=== PATIENT | female | born 1990 | race Caucasian/White ===

== ENCOUNTER → 2018-04-20 13:35 | Outpatient (REF) | payer MEDICAID, SELFPAY ==
[2018-04-21 14:34] LABS: Chlamydia Result Negative; GC Result Negative; Specimen Description CERVIX
== END ==
LOC: LBN 13:35
PROVIDERS: Visit Provider Obstetrics & Gynecology
DX: Z11.3 Encounter for screening for infections with a predominantly sexual mode of transmission (principal)
CPT/HCPCS: 87491; 87591

== ENCOUNTER 2018-07-08 15:12 | Outpatient (REF) | payer SELFPAY ==
[2018-07-11 15:15] LABS: Chlamydia Result Negative; GC Result Negative; Specimen Description CERVIX
== END 2018-07-08 15:32 ==
LOC: LBN 15:12
PROVIDERS: Visit Provider Nurse Practitioner Women's Health
DX: Z11.3 Encounter for screening for infections with a predominantly sexual mode of transmission (principal)
CPT/HCPCS: 87491; 87591

== ENCOUNTER 2021-09-23 03:01 | Outpatient (CLI) | payer MEDICAID, SELFPAY ==
[2021-09-23 14:49] LABS: Kit/Specimen SENT
[2021-09-23 15:13] LABS: Abs Immature Grans 0.02 10^3/uL (0.0-0.06); Absolute Basophil Count 0.04 10^3/uL (0.0-0.2); Absolute Eosinophil Count 0.06 10^3/uL (0.0-0.7); Absolute Lymphocyte Count 1.48 10^3/uL (1.2-3.4); Absolute Monocyte Count 0.45 10^3/uL (0.1-0.8); Absolute Neutrophil Count 5.42 10^3/uL (1.2-6.7); Basophils % 0.5; Eosinophils % 0.8; HCT 35.4 % (36.0-46.0); HGB 12.3 g/dL (11.2-15.7); Immature Grans % 0.3; Lymphocytes % 19.8; MCH 31.1 pg (27.0-33.0); MCHC 34.7 % (32.0-36.0); MCV 89.4 fL (80-95); MPV 11.7 fL (8.0-11.0); Neutrophils % 72.6; Nucleated RBC 0 %; Platelet Count 213 10^3/uL (130-400); RBC 3.96 10^6/uL (3.93-5.22); RDW 12.1 % (11.7-14.6); RDW-SD 40.2 fL; WBC 7.47 10^3/uL (4.4-10.8)
[2021-09-23 16:00] LABS: *AMPHETAMINES SCREEN URINE Negative (Negative); *BARBITURATES SCREEN URINE Negative (Negative); *BENZODIAZEPINES SCREEN URINE Negative (Negative); Cannabinoids THC Negative (Negative); Cocaine Screen,Urine Negative (Negative); METHADONE URINE SCREEN Negative (Negative); OPIATES URINE SCREEN Negative (Negative); Tricyclic Antidepressants Negative (Negative)
[2021-09-23 17:48] LABS: TSH (W/Ref FT4) 3.28 uIU/mL (0.36-3.74)
[2021-09-24 10:29] LABS: Hepatitis B Surface Ag Negative (Negative)
[2021-09-24 11:03] LABS: Varicella IgG Antibody Positive (See Note)
[2021-09-24 11:06] LABS: Rubella IgG Ab (UVM) Negative (See Note)
[2021-09-24 11:31] LABS: Hepatitis C Ab w Rflx HCV PCR Negative (Negative)
[2021-09-24 13:23] LABS: HIV-1/2 Ag & Ab Screen Negative (Negative)
[2021-09-24 15:48] LABS: Chlamydia Result Negative (Negative); GC Result Negative (Negative)
[2021-09-25 11:19] LABS: Syphilis Total Ab w/Reflex Nonreactive (Nonreactive)
[2021-09-28 00:51] LABS: Result Summary NEGATIVE; Specimen WB Whole Blood
[2021-10-01 12:09] LABS: Buprenorphine Negative ng/mL (Cutoff: 5.0); Norbuprenorphine Negative ng/mL (Cutoff: 2.5)
== END 2021-09-23 03:02 | disposition home or self-care (01) ==
LOC: LBO 03:01
PROVIDERS: Visit Provider Advanced Practice Midwife
DX: Z34.01 Encounter for supervision of normal first pregnancy, first trimester (principal); N89.8 Other specified noninflammatory disorders of vagina
CPT/HCPCS: 36415; 80307; 86787; 86803; 86850; 86900; 86901; 87340; 87389; 87491; 87591; 81220; 84443; 85025; 86762; 86780; 87086; 87480; 87510; 87660

== ENCOUNTER 2021-09-23 15:51 | Outpatient (REF) | payer MEDICAID, SELFPAY ==
--- NOTE | 2021-09-23 13:40 | PAPFT_PTH ---
PATIENT: Dorothy Wakefield LOC: [facility] U#:[id number] AGE/SX: 31/F ROOM: RE09/23/[address]: Autumn Bedolla CNM : 1990 BED: DIS: 09/23/2021 SPEC #: [id number] RECD: 09/23/21 18:14 STATUS: GLORY REQ #: [id number] PERLA: 09/23/21 13:[address]: Autumn Bedolla DEPT: [facility] Cytology RECD BY: Gwen Martinez ENTERED: 09/23/21 18:15 SP TYPE: PAPFT OTHR DR: None Tissues: 1 - CX/ENDOCX FOR PAP SMEARS Procedures: PAP THIN PREP/UVM Screening HPV DNA PROBE Comments: [id number]
== END 2021-09-23 15:52 | disposition home or self-care (01) ==
LOC: LBN 15:51
PROVIDERS: Visit Provider Advanced Practice Midwife
DX: Z12.4 Encounter for screening for malignant neoplasm of cervix (principal); Z11.51 Encounter for screening for human papillomavirus (HPV)
CPT/HCPCS: 88142; 87624

== ENCOUNTER 2021-10-28 02:09 | Outpatient (CLI) | payer MEDICAID, SELFPAY ==
[2021-10-28 12:25] LABS: T4 14.5 ug/mL (4.7-13.3)
[2021-10-28 13:31] LABS: FREE T4 0.98 ng/dL (0.76-1.46); TSH 1.47 uIU/mL (0.36-3.74)
[2021-10-29 10:15] LABS: Thyroperoxidase Antibody 30 U/mL (<=60)
== END 2021-10-28 02:10 | disposition home or self-care (01) ==
LOC: LBO 02:09
PROVIDERS: Advanced Practice Midwife; Visit Provider Advanced Practice Midwife
DX: R79.89 Other specified abnormal findings of blood chemistry (principal)
CPT/HCPCS: 36415; 86376; 84436; 84439; 84443

== ENCOUNTER 2021-12-05 00:06 | Outpatient (CLI) | payer MEDICAID, SELFPAY ==
--- NOTE | 2021-12-05 06:30 | DI.US_ITS ---
Exam(s) US OB 2-3 TRIMESTER EXAM: US OB 2-3 TRIMESTER CLINICAL HISTORY: ,Z34.90 TECHNIQUE: Ultrasound performed using standard protocol. COMPARISON: No exams were available for comparison FINDINGS: Ob ultrasound was performed utilizing 2nd trimester protocol. biometry is consistent with gest ational age of 20 weeks 6 days and EDC of April 18. Placenta is anterior with no placenta previa. There is a normal quantity of amniotic fluid. anomaly screen is within normal limits as per the attached checklist. heart rate was 160 BPM IMPRESSION: DATA REPOSITORY:
== END 2021-12-05 00:26 ==
PROVIDERS: Visit Provider Advanced Practice Midwife
DX: Z34.92 Encounter for supervision of normal pregnancy, unspecified, second trimester (principal); Z3A.20 20 weeks gestation of pregnancy
CPT/HCPCS: 36415; 76805; 82105

== ENCOUNTER 2021-12-05 01:32 | Outpatient (CLI) | payer MEDICAID, SELFPAY ==
[2021-12-08 14:51] LABS: AFP 73.5 ng/mL; Calculated age at EDD 32 years; Cigarette smoking status non-Smoker; GA used in risk estimate Dates estimate; IVF Pregnancy No; Initial or repeat testing Initial testing; Insulin dependent diabetes No; Maternal Weight 134 lbs; Number of Fetuses 1; Physician Phone Number 802-748-7300; Prev Pregnancy w/NTD No; RECOMMENDED FOLLOW UP None.; Results Summary Normal risk
== END 2021-12-05 01:33 | disposition home or self-care (01) ==
LOC: LBO 01:32
PROVIDERS: Advanced Practice Midwife; Visit Provider Advanced Practice Midwife
DX: Z34.92 Encounter for supervision of normal pregnancy, unspecified, second trimester (principal)
CPT/HCPCS: 36415; 82105

== ENCOUNTER 2022-01-27 01:51 | Outpatient (CLI) | payer MEDICAID, SELFPAY ==
[2022-01-27 11:09] LABS: HCT 31.8 % (36.0-46.0); HGB 10.7 g/dL (11.2-15.7); MCH 31.3 pg (27.0-33.0); MCHC 33.6 % (32.0-36.0); MCV 93 fL (80-95); MPV 10.4 fL (8.0-11.0); Platelet Count 162 10^3/uL (130-400); RBC 3.42 10^6/uL (3.93-5.22); RDW 13.2 % (11.7-14.6); RDW-SD 45.1 fL; WBC 8.32 10^3/uL (4.4-10.8)
[2022-01-27 11:18] LABS: Glucose,1 Hr (Glucola) 161 mg/dL (80-140)
== END 2022-01-27 01:52 | disposition home or self-care (01) ==
LOC: LBO 01:51
PROVIDERS: Advanced Practice Midwife; Visit Provider Advanced Practice Midwife
DX: Z3A.28 28 weeks gestation of pregnancy; O36.012 Maternal care for anti-D [Rh] antibodies, second trimester; Z67.91 Unspecified blood type, Rh negative
CPT/HCPCS: 36415; 82950; 85027; 86850; 90384

== ENCOUNTER 2022-02-12 03:10 | Outpatient (CLI) | payer MEDICAID, SELFPAY ==
[2022-02-12 09:00] LABS: Glucose 1 Hour 192 mg/dL
[2022-02-12 11:14] LABS: Glucose 3 Hour 162 mg/dL
--- NOTE | 2022-03-02 15:08 | DIABASSESS_ITS ---
Date of service: 03/02/22 Time of Service: 15:08 Diabetes Note Reason for Visit: gdm NOTE: Met with Dorothy in [facility]. Reviewed blood sugar goals and ideal meal plans with emphasis on complex carbs, lean protein and healthy fats. Encouraged her to to finger sticks QID and bring to next appointment for review. Provided meal plans and contact information. Dorothy has a demanding work schedule and often does not have time to eat meals at regular times. Encouraged her to have protein bars and shakes (such as muscle milk) every 4 hours if unable to sit down for meal. Will follow up prn. Time Spent in Nutritional Counseling and Treatment: 120
--- NOTE | 2022-03-16 15:24 | W.DIABETESNO ---
Date of service: 03/16/22 Time of Service: 15:24 Diabetes Note Reason for Visit: gdm NOTE: Met with Dorothy at [facility] today. Provided insulin injection teaching and reviewed meal plans. Provided my contact information. Time Spent in Nutritional Counseling and Treatment: 10
== END 2022-02-12 03:11 | disposition home or self-care (01) ==
LOC: LBO 03:10
PROVIDERS: Visit Provider Advanced Practice Midwife
DX: Z34.93 Encounter for supervision of normal pregnancy, unspecified, third trimester (principal); Z3A.30 30 weeks gestation of pregnancy
CPT/HCPCS: 36415; 82951

== ENCOUNTER → 2022-04-01 00:52 | Outpatient (CLI) | payer MEDICAID, SELFPAY ==
--- NOTE | 2022-04-01 07:45 | DI.US_ITS ---
Exam(s) US OB BRUNO WEIGHT EXAM: US OB BRUNO WEIGHT CLINICAL HISTORY: HEENA/BRUNO at 36 wks, gest diabetes, O24.419. TECHNIQUE: Transabdominal obstetrical ultrasound was performed. COMPARISON: US US OB 2-3 TRIMESTER from 12/05/2021 FINDINGS: There is a single viable intrauterine gestation with cardiac activity identified-147 bpm The fetus is presently in cephalic position . Amniotic fluid: There is a normal amount of amniotic fluid with an BRUNO of 10.5cm. Placental location: The placenta is anterior grade 2,with no evidence of placenta previa. Dating parameters place this at approximately 37 weeks and 4 days gestational age, implying BROWN of April 18, 2022. BPD measures 37 weeks and 1 day HC measures 37 weeks and 2 days AC measures 3 7 weeks and 1 day FL measures 38 weeks and 5 days Estimated weight is 3229 gm-7 pounds 2 ounces Fetus is at the 64th percentile on the Hadlock scale. IMPRESSION:: Viable 3rd trimester gestation, as described above. DATA REPOSITORY:
== END ==
PROVIDERS: Visit Provider Advanced Practice Midwife
DX: O24.414 Gestational diabetes mellitus in pregnancy, insulin controlled (principal); Z3A.37 37 weeks gestation of pregnancy
CPT/HCPCS: 76816

== ENCOUNTER 2022-04-01 14:31 | Outpatient (REF) | payer MEDICAID, SELFPAY | END 2022-04-01 14:32 | disposition home or self-care (01) | LOC: LBN 14:31 | PROVIDERS: Visit Provider Advanced Practice Midwife | DX: Z34.93 Encounter for supervision of normal pregnancy, unspecified, third trimester (principal) | CPT/HCPCS: 87081 ==

== ENCOUNTER 2022-04-23 09:53 | Outpatient (CLI) | payer MEDICAID, SELFPAY ==
[2022-04-23 13:16] VITALS: BP 116/72; PULSE 95; TEMP 37.1
[2022-04-23 13:33] VITALS: BP 116/72; PULSE 95
--- NOTE | 2022-04-23 14:10 | W.OBNST ---
Date of service: 04/23/22 Time of Service: 13:40 NST Evaluation Reason for NST Reasons for Nonstress Test: POSTDATES Gestational Age Gestational Age in Weeks and Days: 40 Weeks and 3Days Test and Monitor Explained Test/Monitor Explained: Test Explained, Monitor Explained and Patient Verbalized Understanding Vital Signs Blood Pressure: 116/72 Pulse: 95 Temperature: 98.8 F NST Information Date on Monitor: 04/23/22 Time on Monitor: 13:10 Date off Monitor: 04/23/22 Time off Monitor: 13:36 Total Time on Monitor: 26 NST Interventions: None NST Evaluation Patient States Movement: Present FHR Baseline: 130 Variability: Moderate 6-25 bpm Accelerations: 15x15 Decelerations: None NST Results: Reactive Note NST Note Note: Dorothy is feeling well. Has had some cramping since VE in office this past week. No bleeding or LOF. Reports BG's have been stable. She is aware that our plan is to bring her in for induction in the next few days for GDM diet controlled and greater than 40 weeks gestation. She will return in 3 days for NST if unable to do induction prior to that time. Denies questions. TONY NST Reviewed and Verified by: Autumn Bedolla
[2022-04-23 14:12] VITALS: BP 116/72; PULSE 95; TEMP 37.1
== END 2022-04-23 13:49 | disposition home or self-care (01) ==
LOC: BCD 09:56 → OBS 13:14
PROVIDERS: Visit Provider Obstetrics & Gynecology
DX: O48.0 Post-term pregnancy (principal); Z3A.40 40 weeks gestation of pregnancy
CPT/HCPCS: 59025

== ENCOUNTER 2022-04-24 12:34 | Inpatient (IN) | payer MEDICAID, SELFPAY ==
[2022-04-24] VITALS (10 sets, daily range): BP systolic 114–125; BP diastolic 61–71; PULSE 78–95; RESP 17; TEMP 36.8–37.5; O2SAT 98–99
--- NOTE | 2022-04-24 16:32 | W.PM.OBHPL1 ---
Date of service: 04/24/22 Time of Service: 16:47 Assessment and Plan Assessment and plan (1) Gestational diabetes: Status: Acute Assessment and plan: 1. Will get A1c with admission labs and fingerstick glucose times 1 2. Patient has reported almost all blood sugars have been in normal ranges since having changed her diet. TONY (2) Rh negative state in antepartum period: Status: Acute Assessment and plan: 1. plan to obtain cord bloods after delivery and administer Rhogam if indicated . TONY (3) Rubella non-immune status, antepartum: Status: Acute Assessment and plan: 1. Patient has been counseled that vaccine will be offered prior to discharge and she agrees to this plan. TONY (4) Encounter for induction of labor: Status: Acute Assessment and plan: 1. Admit, will do CBC/COVID screen/Type and Screen and HgbA1c as well as 1 hour PP fingerstick while having regular diet during cervical ripening. 2. I have reviewed methods of induction and cervical ripening. Misoprostol, cook catheter, cervidil and pitocin have all been reviewed with patient. Risks and benefits to each as well as alternative such as continued patty- surveillance and expectant management have been reviewed. Patient verbalizes that she would like to move forward with cervical ripening and induction of labor and denies questions at this time. She is aware that medications and procedures associated with induction may change as her labor process progresses. 3. Pain management options reviewed. Dorothy is open to behavioral methods of pain management as well as nitrous oxide use or epidural and will keep us informed of her needs. Will place saline lock on admission in case IV access is needed during labor. 4. Expect NVD. We have discussed that EFW is between 8-9 lb and that there can be risks to a potentially larger baby such as shoulder dystocia and PPH. This has been reviewed again on admission as well as what procedures can be used to manage these risks during labor and at delivery. Denies questions. TONY OB-HPI Labor/Delivery History of Present Illness Reason for Visit: Induction Chief Complaint: Scheduled Induction of Labor Indication for Induction: Gestational Diabetes and Post Date (40w4d). BROWN Calculator Estimated Delivery Date Method Current WG Current Estimate 04/20/22 LMP (Certain) 40w 4d Comments: Reports having had cramping and some brown / pink discharge since VE yesterday. No LOF or red bleeding. Baby has been active. Dorothy and her significant other, Zaid, present for scheduled induction of labor due to being greater than 40 weeks gestation and diet controlled GDM. We have reviewed cervical ripening and induction of labor methods and risks/benefits as well as alternatives such as continued ante- surveillance and expectant management. She would like to move forward with induction today.KH History of Present Expected Delivery Route/Plan - CNM FOB/byfrnd - Zaid Martinez (first child). They do not live together BB yes to circ / GBS neg Rubella Non-Immune, offer MMR GDM Dx'ed at 30 wks, diet controlled. recommends IOL at 40 wks Open to epidural. Specific Issues/Plan 1. Mild hearing deficit caused by lifelong tinnitus, audiology referral done, pt will be getting hearing aids 2. Pt declines COVID vaccination- she had covid 06/2021, FOB is vaccinated 3. CF/Panorama drawn, declines SMA, Panorama LR X 5 male, CF neg, AFP=nml risk for NTD 4. Rh neg, discussed with Dorothy, Rhogam @ 28 wks, done 01/27/22 5. TSH 3.28, discussed w/pt , 10/28: Repeat TSH 1.47, T4 0.98, TPO=30 (nml) 6. Rubella non immune offered and pt accepts MMR PP 7. Anemia - Hgb 10. 7. Encouraged to take her TID vitamin as recommended 8. 24 wk glucola 161; 3 hr GTT @ 30 wks - 94/102/186/162; GDM, start QID home monitoring, fish and wildlife biologist referral 8a. Blood sugars reviewed and many elevated 03/10, nutrition counseling referral to L[facility] CHOUDH[facility]. RTO in 5 days to review 9. Growth US 37w2d; growth 64% BRUNO 10.4 Assessment: History Reviewed & Current Review of Systems All systems reviewed & are unremarkable except as noted in HPI and below Genitourinary Comments: scant amount of brown vaginal discharge since VE yesterday. denies LOF. Is having mild cramping but does not notice any contractions. [facility] All Active Problems (Updated 04/24/22 @ 17:01 by Autumn Bedolla CNM) Encounter for induction of labor (Acute) Gestational diabetes (Acute) Sensorineural hearing loss (Acute) Rubella non-immune status, antepartum (Acute) Rh negative state in antepartum period (Acute) Chronic constipation (Acute) Bilateral tinnitus (Acute) patient, sister and both brothers affected (Acute) Surgical History [place] teeth extracted ag e18 Family History Father Asthma Paternal Aunt Breast cancer less than 50 at time of diagnosis Mother Depression Other Dementia Social History Smoking/Tobacco Use Status: Never Smoking risk assessment performed?: Yes Alcohol Intake: former Counseling given: Yes Drug use: Never Do you feel safe in your relationship?: Yes Female Reproductive History Menstrual control method: none History History 1 Para 0 Hx # Term Pregnancies 0 Multiple births 0 Hx # Pregnancies 0 Ectopic pregnancies 0 AB induced 0 Hx Number of Living Children 0 AB spontaneous 0 Meds Allergies and Home Medications Allergies Allergy/AdvReac Type Severity Reaction Status Date / Time No Known Allergies Allergy Verified 04/24/22 16:56 Home Medications Medication Instructions Recorded Confirmed Type prenat.vits,florentino,ile-byau-ygavl 1 tab PO DAILY 08/20/21 04/21/22 History calcium 250 mg-D3 400 1 tab PO DAILY 10/21/21 04/21/22 History unit-magnesium 40 bu-Z3-Lq-copper-topher tablet blood sugar diagnostic (FreeStyle #100 ea 02/18/22 04/21/22 Rx Lite Strips) blood-glucose meter (FreeStyle #1 ea 02/18/22 04/21/22 Rx [facility] Lite kit) lancets 28 gauge (FreeStyle #100 ea 02/18/22 04/21/22 Rx Lancets) ferrous phosphate 1 tab PO 03/02/22 04/21/22 History needle (disp) 25 gauge 25 gauge x #100 ea 03/16/22 04/21/22 Rx 5/8 (BD Regular Bevel Novelty) Exam Physical Exam Vital signs: Pulse BP 82 115/68 04/24/22 16:28 04/24/22 16:28 Vital Signs Reviewed: Yes Constitutional Constitutional: no acute distress and average body habitus Detailed Labor and Delivery Exam Dilation: 0 Effacement (%): 80 station: -2 Cervix position: posterior Consistency: medium Restrepo Score: Cervical Points Exam 0 1 2 3 Dilation Closed 1-2cm 3-4 cm 5-6cm Effacement 0-30% 40-50% 60-70% 80% Consistency Firm Medium Soft Station -3 -2 -1,0 +1,+2 Position Posterior Mid Anterior RESTREPO Score(Cervical Ripeness Score): 4 Amniotic Membrane Status: Intact Fetus A Heart Rate Baseline: 120 Monitor Accelerations: 15 X 15 Monitor Decelerations: None Variability: Moderate (6-25 BPM) Categories: Category I Est. Weight: 8 lb 8 oz Assessment Note: EFW at 36 weeks by US 7lb2oz HEENT Exam HEENT Exam: Normal (has hearing deficit, requires slow and louder speech for her to hear properly) Neck Exam Neck Exam: Normal Chest/Brest/Axilla Exam Chest Exam: Not Done Breast Exam Breast Exam: Not Done Respiratory Exam Respiratory Exam: Normal Cardiovascular Exam Cardiovascular Exam: Normal Abdominal Exam Abdominal Exam: Normal (normal for advanced , fundal height 40 cm on recent visit) Rectal Exam Rectal Exam: Not Done Exam Exam: Normal Extremities Exam Extremities Exam: Normal Back/Spine/Pelvis Exam Pelvis Adequate: Yes Skin Exam Skin Exam: Normal Neurological Exam Neurological Exam: Normal Psychiatric Exam Psychiatric Exam: Normal Results Results Group Beta Strep: Negative Blood Type: B- Rubella Status: Nonimmune Varicella Immunity: Immune Lab Results: Cystic Fibrosis screen negative, Hep B neg, Hep C neg, HIV Nonreactive, GC CT neg, Panorama low risk, male, UDS neg, syphillis neg, maternal AFP for ONTD neg, 1 hour glucose 161 with 3 hour glucose test, F94/1h 102/2h 186/3h 162. Diet controlled BG's. Abnormal Lab Findings: 1 hour glucose 161 with 3 hour glucose test, F94/1h 102/2h 186/3h 162. Diet controlled BG's. Risk Assessment Risk for Shoulder Dystocia Historical/Initial OB: NEGATIVE FOR: Pelvic Abnormality, Pre- BMI>30, Previous Shoulder Dystocia or Previous Macrosomia 40 Weeks: POSTIVE FOR: Maternal Weight Gain >40lb; NEGATIVE FOR: EFW> 4500 gms or Post Dates Increased Risk?: No Delivery Plan @ 36wks: 09/23/21: KH Delivery Plan @ 40 wks: induction of labor prior to 41 weeks, reviewed shoulder dystocia risks with patient and measures used to mitigate if it occurs. Risk for Pre-Eclampsia Daily Dose ASA Indicated: No Date Initiated/Initials: not indicated Yes, if one or more: NEGATIVE FOR: Hx Pre-E/Gest HTN, Chronic HTN, Multiple Gestation, Pre-gestational DM, Renal Disease, Systemic Lupus or APA Syndrome Yes, if 2 or more: POSITIVE FOR: Nulliparity; NEGATIVE FOR: Age>= 35 yrs, >10yr btwn pregnancies, BMI>30, ethinicty, Mother/Sister w/ Pre-E or Previous IUGR Risk for Post- Hemorrhage Initial: NEGATIVE FOR: Multiple Gestation, Previous PPH, Known Clotting Deficiency, Grand Multiparity or Anticoagulation At Risk?: No Counseled re: Active Management: Yes (due to EFW 8-9lb and 40 lb weight gain and IOL, PPH has been reviewed ) Risks Reviewed Risks Reviewed Upon Admission: Yes
[2022-04-24] MEDS: miSOPROStol 25 MCG TAB VG ×2 (16:46→21:11)
[2022-04-24 18:17] LABS: Source Nasal/Nares
[2022-04-24 18:19] LABS: HCT 36.4 % (36.0-46.0); HGB 12.4 g/dL (11.2-15.7); MCH 30.8 pg (27.0-33.0); MCHC 34.1 % (32.0-36.0); MCV 90 fL (80-95); MPV 11.9 fL (8.0-11.0); Platelet Count 149 10^3/uL (130-400); RBC 4.03 10^6/uL (3.93-5.22); RDW 13.7 % (11.7-14.6); RDW-SD 44.5 fL
[2022-04-24 18:35] LABS: ALT 22 U/L (14-59); AST 13 U/L (15-37); Albumin 2.6 g/dL (3.4-5.0); Alkaline Phosphatase 99 U/L (46-116); Anion Gap 8.1 mmol/L (3-11); BUN 10 mg/dL (7-18); Bilirubin, Total 0.2 mg/dL (0.2-1.0); CO2 20.9 mmol/L (21.0-32.0); CREATININE 0.5 mg/dL (0.55-1.02); Calcium 8.9 mg/dL (8.5-10.1); Chloride 101 mmol/L (98-107); Glucose 105 mg/dL (74-106); Potassium 3.5 mmol/L (3.5-5.1); Sodium 130 mmol/L (136-145); Total Protein 5.9 g/dL (6.4-8.2)
[2022-04-24 18:43] LABS: Hemoglobin A1C 5.5 % (<5.7)
[2022-04-24 19:11] LABS: COVID-19 PCR Negative (Negative)
--- NOTE | 2022-04-24 19:55 | NUR.NOTE ---
Assumed care of patient. Report rec'd from Michelle ROB. Pt sitting up in bed eating dinner with her SO. Appears comfortable, smiling and denies any pain at this time or leakage of fluid.Nursing Note:
--- NOTE | 2022-04-24 20:47 | PGE_ITS ---
Date of service: 04/24/22 Time of Service: 21:14 Informed Consent Informed Consent: Induction of Labor Pelvic Exam Dilation: 0 Effacement (%): 80 station: -2 Cervix Position: posterior Consistency: soft BISHOPS Score(Cervical Ripeness Score): 6 Contractions Monitor Mode: External Contraction Frequency(min): 3-5 Contraction Duration(sec): 60 Intensity: Mild Fetus A Monitor: External (US) Heart Rate Baseline: 120 Variability: Moderate (6-25 BPM) Categories: Category I Accelerations: 15 X 15 Decelerations: None Assessment and Plan Assessment and plan (1) Encounter for induction of labor: Status: Acute Assessment and plan: 1. second dose of 25 mcg of misoprostol is placed vaginally by scientific technical writer at approximately 2105 2. will give Ambien for rest 3. will reassess at 0100, if patient is sleeping well at 0100 will allow to rest until approximately 0500 and reassess or will reassess when awake for further cervical ripening or pitocin as indicated by VE. 4. patient and her partner deny questions at this time and agree to this plan of care. KH Objective Abnormal lab results 04/24/22 04/24/22 Range/Units 18:09 18:09 MPV 11.9 H (8.0-11.0) fL Sodium 130 L (136-145) mmol/L Carbon Dioxide 20.9 L (21.0-32.0) mmol/L Creatinine 0.5 L (0.55-1.02) mg/dL AST 13 L (15-37) U/L Total Protein 5.9 L (6.4-8.2) g/dL Albumin 2.6 L (3.4-5.0) g/dL Temp Pulse Resp BP Pulse Ox 99.5 F 95 H 17 125/71 98 04/24/22 19:45 04/24/22 20:22 04/24/22 19:45 04/24/22 19:47 04/24/22 20:22 Laboratory Results WBC 10.70 10^3/uL (4.4-10.8) 04/24/22 18:09 RBC 4.03 10^6/uL (3.93-5.22) 04/24/22 18:09 Hgb 12.4 g/dL (11.2-15.7) 04/24/22 18:09 Hct 36.4 % (36.0-46.0) 04/24/22 18:09 MCV 90 fL (80-95) 04/24/22 18:09 MCH 30.8 pg (27.0-33.0) 04/24/22 18:09 MCHC 34.1 % (32.0-36.0) 04/24/22 18:09 RDW 13.7 % (11.7-14.6) 04/24/22 18:09 Plt Count 149 10^3/uL (130-400) 04/24/22 18:09 MPV 11.9 fL (8.0-11.0) H 04/24/22 18:09 Sodium 130 mmol/L (136-145) L 04/24/22 18:09 Potassium 3.5 mmol/L (3.5-5.1) 04/24/22 18:09 Chloride 101 mmol/L (98-107) 04/24/22 18:09 Carbon Dioxide 20.9 mmol/L (21.0-32.0) L 04/24/22 18:09 Anion Gap 8.1 mmol/L (3-11) 04/24/22 18:09 BUN 10 mg/dL (7-18) 04/24/22 18:09 Creatinine 0.5 mg/dL (0.55-1.02) L 04/24/22 18:09 Estimated GFR/1.73 m2 >= 60.00 (mL/min/1.73m2) 04/24/22 18:09 Glucose 105 mg/dL (74-106) 04/24/22 18:09 Hemoglobin A1c 5.5 % (<5.7) 04/24/22 18:09 Calcium 8.9 mg/dL (8.5-10.1) 04/24/22 18:09 Total Bilirubin 0.2 mg/dL (0.2-1.0) 04/24/22 18:09 AST 13 U/L (15-37) L 04/24/22 18:09 ALT 22 U/L (14-59) 04/24/22 18:09 Alkaline Phosphatase 99 U/L (46-116) 04/24/22 18:09 Total Protein 5.9 g/dL (6.4-8.2) L 04/24/22 18:09 Albumin 2.6 g/dL (3.4-5.0) L 04/24/22 18:09 COVID-19 Source Nasal/Nares 04/24/22 18:09 SARS-CoV-2 (PCR) Negative (Negative) 04/24/22 18:09 Patient ABO/Rh B Negative 04/24/22 18:09 Antibody Screen NEGATIVE 04/24/22 18:09 Subjective Interval history since last seen: Dorothy is feeling cramping but not more intense yet. She is going to take Ambien for rest and agrees to another vaginal dose of misoprostol 25 mcg. BG after eating telugu food 157. Will encourage less carbs for remainder of labor and if necessary will repeat BG in active labor. KH Results Hemoglobin/Hematocrit: Hgb 12.4 g/dL (11.2-15.7) 04/24/22 18:09 Hct 36.4 % (36.0-46.0) 04/24/22 18:09 Abnormal Lab Findings: Abnormal Labs 04/24/22 04/24/22 18:09 18:09 MPV 11.9 H Sodium 130 L Carbon Dioxide 20.9 L Creatinine 0.5 L AST 13 L Total Protein 5.9 L Albumin 2.6 L
[2022-04-24] MEDS: Zolpidem 5 MG TAB 10 MG PO (21:03)
[2022-04-25] VITALS (19 sets, daily range): BP systolic 100–135; BP diastolic 60–93; PULSE 72–102; RESP 16–22; TEMP 36.7–37.1; O2SAT 97
--- NOTE | 2022-04-25 03:30 | W.PM.OBNL1 ---
Date of service: 04/25/22 Time of Service: 03:30 Informed Consent Informed Consent: Induction of Labor Pelvic Exam Dilation: 3 Effacement (%): 90 station: -1 Cervix Position: anterior Consistency: soft Comments: large amounts of clear fluid leaking vaginally, grossly ruptured. Assessment and Plan Assessment and plan (1) Encounter for induction of labor: Status: Acute Assessment and plan: 1. VE /-1 2/ FHR tracing CAT I 3. Will give IV zofran for nausea and vomiting and use nirous for pain relief 4. Expect NVD. Objective Abnormal lab results 04/24/22 04/24/22 Range/Units 18:09 18:09 MPV 11.9 H (8.0-11.0) fL Sodium 130 L (136-145) mmol/L Carbon Dioxide 20.9 L (21.0-32.0) mmol/L Creatinine 0.5 L (0.55-1.02) mg/dL AST 13 L (15-37) U/L Total Protein 5.9 L (6.4-8.2) g/dL Albumin 2.6 L (3.4-5.0) g/dL Temp Pulse Resp BP Pulse Ox 98.2 F 75 17 135/93 H 99 04/24/22 23:00 04/25/22 03:18 04/24/22 23:00 04/25/22 03:18 04/24/22 23:08 Laboratory Results WBC 10.70 10^3/uL (4.4-10.8) 04/24/22 18:09 RBC 4.03 10^6/uL (3.93-5.22) 04/24/22 18:09 Hgb 12.4 g/dL (11.2-15.7) 04/24/22 18:09 Hct 36.4 % (36.0-46.0) 04/24/22 18:09 MCV 90 fL (80-95) 04/24/22 18:09 MCH 30.8 pg (27.0-33.0) 04/24/22 18:09 MCHC 34.1 % (32.0-36.0) 04/24/22 18:09 RDW 13.7 % (11.7-14.6) 04/24/22 18:09 Plt Count 149 10^3/uL (130-400) 04/24/22 18:09 MPV 11.9 fL (8.0-11.0) H 04/24/22 18:09 Sodium 130 mmol/L (136-145) L 04/24/22 18:09 Potassium 3.5 mmol/L (3.5-5.1) 04/24/22 18:09 Chloride 101 mmol/L (98-107) 04/24/22 18:09 Carbon Dioxide 20.9 mmol/L (21.0-32.0) L 04/24/22 18:09 Anion Gap 8.1 mmol/L (3-11) 04/24/22 18:09 BUN 10 mg/dL (7-18) 04/24/22 18:09 Creatinine 0.5 mg/dL (0.55-1.02) L 04/24/22 18:09 Estimated GFR/1.73 m2 >= 60.00 (mL/min/1.73m2) 04/24/22 18:09 Glucose 105 mg/dL (74-106) 04/24/22 18:09 Hemoglobin A1c 5.5 % (<5.7) 04/24/22 18:09 Calcium 8.9 mg/dL (8.5-10.1) 04/24/22 18:09 Total Bilirubin 0.2 mg/dL (0.2-1.0) 04/24/22 18:09 AST 13 U/L (15-37) L 04/24/22 18:09 ALT 22 U/L (14-59) 04/24/22 18:09 Alkaline Phosphatase 99 U/L (46-116) 04/24/22 18:09 Total Protein 5.9 g/dL (6.4-8.2) L 04/24/22 18:09 Albumin 2.6 g/dL (3.4-5.0) L 04/24/22 18:09 COVID-19 Source Nasal/Nares 04/24/22 18:09 SARS-CoV-2 (PCR) Negative (Negative) 04/24/22 18:09 Patient ABO/Rh B Negative 04/24/22 18:09 Antibody Screen NEGATIVE 04/24/22 18:09 Subjective Interval history since last seen: Dorothy had SROM for large amount of clear fluid at 0315 and quick increase in contraction pain and frequency. VE 3/90/-1 anterior and soft. FHR 120's with mod variability. Contractions moderate to strong every 3-4 minutes. Dorothy also has had vomiting and will try some IV zofran and IV hydration to assist. She plans to start using Nitrous for pain. KH Results Hemoglobin/Hematocrit: Hgb 12.4 g/dL (11.2-15.7) 04/24/22 18:09 Hct 36.4 % (36.0-46.0) 04/24/22 18:09 Abnormal Lab Findings: Abnormal Labs 04/24/22 04/24/22 18:09 18:09 MPV 11.9 H Sodium 130 L Carbon Dioxide 20.9 L Creatinine 0.5 L AST 13 L Total Protein 5.9 L Albumin 2.6 L
[2022-04-25] MEDS: Ondansetron 4 MG/2 ML VIAL IVP (03:40)
[2022-04-25] MEDS: Normal Saline Flush 10 ML SYR IVP (03:41)
[2022-04-25] MEDS: Oxytocin/Normal Saline 30 UNIT/500 ML BAG 95 UNITS IV (07:22)
[2022-04-25] MEDS: Lidocaine 1% Multi-Dose 20 ML VIAL IJ (07:27)
--- NOTE | 2022-04-25 07:55 | W.OBDELIVERY ---
Date of service: 04/25/22 Time of Service: 07:55 OB Labor/ Delivery Information Baby A Delivery Delivery Method: Spontaneaous Presentation: Cephalic Cephalic Position: Vertex Vertex Position: Left Occipital Anterior Cord Description-Baby A: 3 Vessels, Nuchal Cord (X1), Reduced and Clamped/Cut Amniotic Fluid: Clear Estimated Blood Loss: 100 Delivery Outcome: Liveborn Infant Transferred: Remains with Mother Providers Nurse Senior Production Manager: Autumn Bedolla Nurse: Alysia Byrnes Nurse: Vignesh Maldonado Labor/Delivery Information Number of Babies in Womb: 1 Steroids Given: None Reason Steroids Not Administered: N/A Group Beta Strep: Negative Antibiotics Administered: No Rubella Status: Nonimmune Blood Type: B- Varicella Immunity: Immune Medication in Delivery: none Maternal Complications: None Shoulder Dystocia: Yes Stages of Labor Onset of Labor Date: 04/25/22 Onset of Labor Time: 03:15 Complete Dilatation Date: 04/25/22 Complete Dilatation Time: 04:50 Labor - Stage 1 Duration: 0 minutes ROM Baby A: 04/25/22 ROM Baby A: 03:15 ROM Total Time- Baby A: [id number] Infant Delivery Date-Baby A: 04/25/22 Delivery Time-Baby A: 07:21 Labor Stage 2 Duration: 2 hours and 31 minutes Placenta Delivery Date-Baby A: 04/25/22 Placenta Delivery Time-Baby A: 07:27 Labor-Stage 3 Duration: 6 minutes Total Length of Labor-Baby A: 4 hours and 6 minutes Placenta Cultured: No Placenta Status: Delivered Baby A Gender: Male Gestational Status: Term (39-41.6 wks) Gestational Age in Weeks/Days: 40 Weeks and 5 Days Score-1 Minute Interval(Baby A) Heart Rate-1 minute: 100 BPM or Greater Respiratory Effort- 1 minute: Spontaneous/Strong Cry Muscle Tone-1 minute: Minimal Flexion/Extension Reflex Response-1 minute: Prompt Response Color-1 minute: Pallor or Cyanosis Total Score-1 minute: 7 Score-5 Minute Interval(Baby A) Heart Rate- 5 minute: 100 BPM or Greater Respiratory Effort-5 minute: Spontaneous/Strong Cry Muscle Tone-5 minute: Active Movement Reflex Response-5 minute: Prompt Response Color-5 minute: Bluish Hands or Feet Total Score- 5 minute: 9 Note: Dorothy Wakefield presented for induction of labor due to diet controlled GDM at 40w4d. She received 2 doses of 25 mcg of misoprostol vaginally, 4 hours apart with last dose at approximately 2100 on 04/24/22. She slept well with use of Ambien until 0315 when she had SROM for large amount of clear fluid and active contractions. Progressed to complete at 0450 with some urge to push. FHR was CAT 1 throughout first stage of labor. Second stage huddle was performed and plan for active management of third stage was discussed with use of pitocin IV. Patient pushed with good effort with continued progress, using different positions for comfort. FHR remained CAT I with occasional early decelerations but excellent variability and accelerations in second stage. Second stage huddle was repeated at beginning of second hour and third hour of pushing. When we did the second stage huddle for beginning of 3 hours of pushing, despite consistent progress and caput appearing, I had nursing notify Dr. Hansen that we will be into 3rd hour of pushing but that is likely imminent. Head delivered STEVE over 1st degree vaginal laceration inside vaginal introitus at 0719. Nuchal cord times 1 loose, was reduced before patient resumed pushing for shoulders. Posterior arm present first with left arm by face, anterior shoulder then delivers easily with gentle downward guidance and 30 seconds of supra pubic pressure. Baby was delivered onto mothers abdomen at 0721 and dried and stimulated. scores 7 at 1 minute and 9 at 5 minutes. Placenta delivers intact at 0727 via hou mechanism. Fundus is firm at U-1 with massage. EBL 100cc. 1st degree vaginal laceration is infiltrated with 1% lidocaine and repaired with 1 stitch of 3.0 Chromic suture with good hemostasis achieved. Sponge, needle and instrument count are correct. Mother, Father and baby are bonding and doing well. Dorothy is attempting to breast feed before baby is 1 hour old. They plan circ for their baby and Dr. Hansen is aware and will perform 04/26/22. Dorothy and Zaid are uncertain what type of contraception they want to use and will consider this over next couple of weeks with use of abstinence for now. Baby's weight is 8lb 4.6 oz. Baby's name is Berny. Expect normal PP course and discharge to home tomorrow. K[facility] Baby B Delivery Baby B Delivery Infant Complications: Interventions Induction (2 doses of vaginal misoprostol, last dose approximately 2100 on 04/24/22. TONY) Indication: Gestational Diabetes, Type of Induction: Misoprostol administration: Vaginal,/ Repair of Laceration (1st degree vaginal repaired with 3.0 Chromic 1 stitch. TONY) Shoulder Dystocia Delivery Times Date of Delivery of Head: 04/25/22 Time of Delivery of the Head: 07:19 Head to Body Delivery Interval(minutes): 2 Verify No Fundal Pressure Applied Fundal Pressure: No Pressure Applied Arm Under Sympisis Note: posterior arm delivered and 30 seconds of supra pubic pressure applied with good relief of anterior shoulder after posterior arm delivers, approximately 2 minutes from head delivery until . TONY
[2022-04-25] MEDS: Dibucaine 1% 28 GM TUBE TP (09:30)
[2022-04-25] MEDS: Hamamelis Leaf/Glycerin 100 EACH BOX PR (09:35)
[2022-04-25] MEDS: Ibuprofen 600 MG TAB PO ×2 (16:19→23:35)
[2022-04-25] MEDS: Acetaminophen 325 MG TAB 650 MG PO ×2 (16:19→23:34)
[2022-04-26 08:00] VITALS: BP 117/78; PULSE 88; RESP 14; TEMP 36.8
[2022-04-26] MEDS: Ibuprofen 600 MG TAB PO ×2 (08:35→18:36)
[2022-04-26] MEDS: Acetaminophen 325 MG TAB 650 MG PO ×2 (08:35→18:37)
--- NOTE | 2022-04-26 10:02 | OBPPV_ITS ---
Date of service: 04/26/22 Time of Service: 09:00 Assessment and Plan Assessment and plan (1) care following vaginal delivery: Status: Acute Assessment and plan: 1. Normal PP course, continue present management. TONY (2) Lactating mother: Status: Acute Assessment and plan: 1. Will begin to pump until baby is latching well. will work with nursing staff and pediatric providers to develop a feeding plan. [facility] 2. Discharge tomorrow. TONY Subjective Subjective Interval history: Concerned that baby is not latching well at breast. He is routing well and sucks on his hands without difficulty. Had circ this morning. She has been instructed on colostrum expression and using breast pump to stimulate breasts until baby is nursing well. She will stay until tomorrow for help with feeding plan. Dorothy is patient and persistent with baby at breast. No other concerns today. Patient's Mood: fatigued but otherwise congruent mood and positive bonding note d. [place] baby status: Rooming in and Strong Bonding Observed [place] feeding status: Other (currently trying to be exclusive at breast, may need a form of supplementation if nursing is not well established as day goes on. ) Exam Physical Exam Vital signs: Temp Pulse Resp BP Pulse Ox 98.2 F 88 14 117/78 97 04/26/22 08:00 04/26/22 08:00 04/26/22 08:00 04/26/22 08:00 04/25/22 20:00 Vital Signs Reviewed: Yes Constitutional Constitutional: no acute distress, average body habitus and cooperative HEENT Exam HEENT Exam: Normal Neck Exam Neck Exam: Normal (normal visual inspection) Breast Exam Bilateral: Breast Exam: Normal Nipple Exam: Normal Respiratory Exam Respiratory Exam: Normal Cardiovascular Exam Cardiovascular Exam: Normal Abdominal Exam Abdomen: Other (normal exam) Fundal Exam Fundus: Below Umbilicus and Firm Comment: small lochia noted. Rectal Exam Rectal Exam: Not Done Exam Perineum: Intact and Normal Extremities Exam Extremity Exam: Normal (denies calf tenderness) and Full ROM Back/Spine/Pelvis Exam Back Exam: Normal Skin Exam Skin Exam: Normal Neurological Exam Neurological Exam: Normal Psychiatric Exam Psychiatric Exam: Normal Results Hemoglobin/Hematocrit: Hgb 12.4 g/dL (11.2-15.7) 04/24/22 18:09 Hct 36.4 % (36.0-46.0) 04/24/22 18:09 Abnormal Lab Findings: Abnormal Labs 04/24/22 04/24/22 18:09 18:09 MPV 11.9 H Sodium 130 L Carbon Dioxide 20.9 L Creatinine 0.5 L AST 13 L Total Protein 5.9 L Albumin 2.6 L
[2022-04-26 16:53] VITALS: BP 102/66; PULSE 88; RESP 16; TEMP 36.8
[2022-04-26 20:49] VITALS: BP 112/67; PULSE 83; RESP 16; TEMP 36.8; O2SAT 97
--- NOTE | 2022-04-27 07:02 | NUR.NOTE ---
Pt states she has not had a BM since delivery.Nursing Note:
[2022-04-27 08:00] VITALS: BP 110/63; PULSE 80; RESP 16; TEMP 36.9
--- NOTE | 2022-04-27 08:22 | DSE_ITS ---
Date of service: 04/27/22 Time of Service: 08:26 DS: Diagnosis Discharge Diagnosis (1) care following vaginal delivery: Status: Acute Asessment and Plan: 1. Stable PP course, will discharge to home with PP warning signs reviewed 2. RTO in 2 and 6 weeks PP , I reviewed that if she desires IUD or Nexplanon for contraception by 6 week PP visit she should let office know prior to that visit or it may require another visit after the 6 week visit to perform. [facility] (2) Lactating mother: Status: Acute Asessment and Plan: 1. Patient has a good feeding plan and denies questions related to breast feeding. 2. Will follow up with pediatrics for weight checks and well visits 3. RTO 2 and 6 weeks PP in [facility]. Discharge Plan Disposition Patient Disposition: HOME Condition: Good Discharge Details Reason For Visit: Induction Admit Date/Time: 04/24/22 12:34 Admit Provider: Autumn Bedolla Attending Provider: Autumn Bedolla Primary Care Provider: Unknown,Unknown Hospital Course Hospital Course: Dorothy presented for induction of labor in the evening of 04/24/22 and had 2 doses of vaginal misoprostol, 25 mcg approximately 4 hours apart. She then had SROM for large amount of clear fluid and began active labor. She progressed to 10 cm and had involuntary pushing efforts. Second stage huddle was done, it was noted that FHR tracing had been CAT I throughout first stage and continued to be CAT I at that time. With good pushing effort and multiple position changes she delivered a live male . After head delivered, Dorothy became fatigued and did not push as hard and the anterior shoulder did not deliver over the next 30 seconds. We employed McRobert's maneuver, supra pubic pressure and delivery of the posterior arm done sequentially over 90 seconds of time and we were successful in delivering baby. Baby had 7 and 9 apgars and no complications were noted. 1st degree vaginal midline lac was repaired with 1 stitch of 3.0 chromic. PP course normal and mom and baby are discharged day 2. Home Meds and New Rx's Prescriptions: New acetaminophen 325 mg Tablet 650 mg PO Q4H PRN PRNQty: 90 0RF docusate sodium [Colace] 100 mg Capsule 100 mg PO BID PRN PRNQty: 90 0RF ibuprofen 600 mg Tablet 600 mg PO Q6H PRN PRNQty: 90 0RF Continued prenat.vits,florentino,[id number] Tablet 1 tab PO DAILY [id number] 250 mg-400 unit -40 mg-5 mg tablet 1 tab PO DAILY Discontinued (DME) BD Regular [place]vel [place] 25 gauge x 5/8 needle See Rx Instructions .Route Qty: 100 1RF Rx Instructions: As directed (DME) FreeStyle Lite Strips Strip See Rx Instructions .Route Qty: 100 3RF Rx Instructions: 4 times daily (DME) blood-glucose meter [FreeStyle [place] Lite] Kit See Rx Instructions .Route Qty: 1 0RF Rx Instructions: As directed (DME) lancets [FreeStyle Lancets] 28 gauge misc See Rx Instructions .Route Qty: 100 3RF Rx Instructions: 4 times daily Discharge Instructions Instructions: Ibuprofen (By mouth), Laxative, Stool Softeners (By mouth) Additional Instructions: Plan to do a 2 hour Glucose tolerance test 6-12 weeks due to gestational diabetes. We will help to set this up at your 2 week PP viist. [facility] Stand Alone Forms: Instructions, Post Vaginal Deliver Activity:: Activity as Tolerated Equipment/Supplies:: No Equipment Needed Diet:: As Tolerated Discharge Orders Discharge Orders: Discharge Order (Routine); Ordered 04/27/22 Ordered By: Autumn Bedolla OB:DS Summary Summary Vaginal Delivery Method: Spontaneaous Episiotomy Description: None Laceration Description: Other Laceration Extension: First Degree Contraception Discussed Contraception Discussed: Yes (abstinence until plan is made is recommended) Contraceptive Plan: Undecided, Infant Gender-Baby A: Male weight: 8 lb 4.63 oz Status at Discharge Functional status at discharge: independent ambulation Overall status at discharge: patient is back to baseline Mental Status: mental status grossly normal Speech and Movement: speech and movement normal Mood: congruent mood Affect: normal affect Time Spent with Patient providing and/or coordinating discharge services: Less than 30 minutes Exam Physical Exam Vital signs: Temp Pulse Resp BP Pulse Ox 98.2 F 83 16 112/67 97 04/26/22 20:49 04/26/22 20:49 04/26/22 20:49 04/26/22 20:49 04/26/22 20:49 Vital Signs Reviewed: Yes Constitutional Constitutional: no acute distress, average body habitus and cooperative HEENT Exam HEENT Exam: Normal Neck Exam Neck Exam: Normal (normal visual inspection) Breast Exam Bilateral: Breast Exam: Normal Nipple Exam: Normal Respiratory Exam Respiratory Exam: Normal Cardiovascular Exam Cardiovascular Exam: Normal Abdominal Exam Abdomen: Other (normal exam) Fundal Exam Fundus: Below Umbilicus and Firm Comment: small lochia noted. KH Rectal Exam Rectal Exam: Not Done Exam Perineum: Intact and Normal Extremities Exam Extremity Exam: Normal (denies calf tenderness) and Full ROM Back/Spine/Pelvis Exam Back Exam: Normal Skin Exam Skin Exam: Normal Neurological Exam Neurological Exam: Normal Psychiatric Exam Psychiatric Exam: Normal PFSH All Active Problems Lactating mother (Acute) care following vaginal delivery (Acute) Sensorineural hearing loss (Acute) Rubella non-immune status, antepartum (Acute) Rh negative state in antepartum period (Acute) Chronic constipation (Acute) Bilateral tinnitus (Acute) patient, sister and both brothers affected (Acute) Medical History Encounter for induction of labor Gestational diabetes Surgical History [place] teeth extracted ag e18 Family History Father Asthma Paternal Aunt Breast cancer less than 50 at time of diagnosis Mother Depression Other Dementia Social History Smoking/Tobacco Use Status: Never Smoking risk assessment performed?: Yes Alcohol Intake: former Counseling given: Yes Drug use: Never Do you feel safe in your relationship?: Yes Female Reproductive History Menstrual control method: none History History 1 Para 0 Hx # Term Pregnancies 0 Multiple births 0 Hx # Pregnancies 0 Ectopic pregnancies 0 AB induced 0 Hx Number of Living Children 0 AB spontaneous 0 DS: Data Vitals/I&O Vitals and I&O: Vital Signs Temperature 98.2 F 04/26/22 20:49 Pulse 83 04/26/22 20:49 Pulse Rhythm Regular 04/26/22 19:15 Respiratory Rate 16 04/26/22 20:49 Respiratory Depth Normal 04/25/22 10:33 Blood Pressure 112/67 04/26/22 20:49 Blood Pressure Mean 82 04/26/22 20:49 Pulse Oximetry 97 04/26/22 20:49 Oxygen Delivery Method Room Air 04/24/22 16:56 Oxygen Flow Rate 0 04/24/22 16:56 Pain Level 0 04/26/22 20:49 Comment 04/25/22 06:35 Data Completed and Pending Labs on day of discharge: Labs from last 24 hours 04/25/22 13:40 Screen NEG
[2022-04-27] MEDS: Acetaminophen 325 MG TAB 650 MG PO (08:24)
[2022-04-27] MEDS: Ibuprofen 600 MG TAB PO (08:24)
[2022-04-27] MEDS: Docusate Sodium 100 MG CAP PO (08:25)
[2022-04-27] MEDS: Hamamelis Leaf/Glycerin 100 EACH BOX PR (10:40)
== END 2022-04-27 11:00 | disposition home or self-care (01) | DRG 806 ==
PROVIDERS: Admitting Provider Advanced Practice Midwife; Visit Provider Advanced Practice Midwife
DX: O24.419 Gestational diabetes mellitus in pregnancy, unspecified control (principal); O36.0930 Maternal care for other rhesus isoimmunization, third trimester, not applicable or unspecified; Z37.0 Single live birth; O99.354 Diseases of the nervous system complicating childbirth; O24.420 Gestational diabetes mellitus in childbirth, diet controlled; O69.81X0 Labor and delivery complicated by cord around neck, without compression, not applicable or unspecified; O70.0 First degree perineal laceration during delivery; O99.02 Anemia complicating childbirth; D64.9 Anemia, unspecified; O99.62 Diseases of the digestive system complicating childbirth; Z3A.40 40 weeks gestation of pregnancy; H90.3 Sensorineural hearing loss, bilateral; K59.09 Other constipation; H93.13 Tinnitus, bilateral
CPT/HCPCS: 80053; 85027; 85461; 86850; 86900; 86901; 87635; 90384; 83036; J2405; J2790; J3490

== ENCOUNTER 2025-09-03 00:54 | Outpatient (CLI) | payer SELFPAY ==
[2025-09-03 15:38] LABS: Abs Immature Grans 0.03 10^3/uL (0.0-0.06); HCT 35.4 % (36.0-46.0); HGB 12.5 g/dL (11.2-15.7); Immature Grans % 0.3 %; MCH 30.6 pg (27.0-33.0); MCHC 35.3 % (32.0-36.0); MCV 87 fL (80-95); MPV 10.6 fL (8.0-11.0); Platelet Count 214 10^3/uL (130-400); RBC 4.09 10^6/uL (3.93-5.22); RDW 12.4 % (11.7-14.6); RDW-SD 39.2 fL; WBC 9.65 10^3/uL (4.4-10.8)
[2025-09-03 15:49] LABS: Hemoglobin A1C 4.8 % (<5.7)
[2025-09-03 16:14] LABS: TSH (W/Ref FT4) 0.67 uIU/mL (0.55-4.78)
[2025-09-04 01:12] LABS: Hepatitis C Ab w Rflx HCV PCR Negative (Negative)
[2025-09-04 01:14] LABS: HIV-1/2 Ag & Ab Screen Negative (Negative)
[2025-09-04 09:33] LABS: Rubella IgG Ab (UVM) Negative (See Note)
[2025-09-05 22:37] LABS: Syphilis IgG w/Reflex Nonreactive (Nonreactive)
== END 2025-09-03 00:55 | disposition home or self-care (01) ==
LOC: LBO 00:54
PROVIDERS: Visit Provider Advanced Practice Midwife
DX: Z34.91 Encounter for supervision of normal pregnancy, unspecified, first trimester (principal)
CPT/HCPCS: 36415; 86787; 86803; 86850; 86900; 86901; 87340; 87389; 83036; 84443; 85025; 86762; 86780

== ENCOUNTER 2025-09-03 14:31 | Outpatient (REF) | payer SELFPAY ==
[2025-09-05 12:05] LABS: Chlamydia Result Negative (Negative); GC Result Negative (Negative)
== END 2025-09-03 14:32 | disposition home or self-care (01) ==
LOC: LBN 14:31
PROVIDERS: Visit Provider Advanced Practice Midwife
DX: Z34.91 Encounter for supervision of normal pregnancy, unspecified, first trimester (principal)
CPT/HCPCS: 87491; 87591; 87086